=== PATIENT | female | born 1960 | race Caucasian/White ===

== ENCOUNTER 2024-10-02 13:01 | Emergency (ER) | payer OTHER ==
[~2024-10-02] VITALS: Ht 167.6 cm; Wt 60.3 kg
[~2024-10-02 13:01] MED LIST: ALPR0.255 PO; TERB250T53 PO
[2024-10-02] MEDS ORDERED: HYDR-3972 PO (13:44)
[2024-10-02] MEDS ORDERED: IBUP-1957 PO (13:44)
[2024-10-02 13:55] VITALS: BP 130/76; O2SAT 98
[2024-10-02] MEDS ORDERED: TRAM50TA2 PO ×2 (18:12→18:16)
== END 2024-10-02 13:56 | disposition home or self-care (01) ==
LOC: ER 13:01
DX: K43.9 Ventral hernia without obstruction or gangrene (principal); F17.200 Nicotine dependence, unspecified, uncomplicated; F41.9 Anxiety disorder, unspecified; K59.09 Other constipation; Z87.440 Personal history of urinary (tract) infections
CPT/HCPCS: A4606; A4663

== ENCOUNTER → 2024-10-14 | Emergency (ER) | payer OTHER ==
[~2024-10-14] VITALS: Ht 167.6 cm; Wt 59.0 kg
[~2024-10-14] MED LIST changes: +CEFTRIAXONE 1 G VIAL ONE; +CEPH500C2 PO; +FLUCONAZOLE 100 MG TABLET ONE; +HYDR-3972 PO; +HYDR-4209 PO; +IBUP-1955 PO; +IBUP-1957 PO; +MORPHINE SULFATE 4 MG/1 ML DISP.SYRIN ONE; +ONDA4TAB5 PO; +ONDANSETRON 4 MG/2 ML VIAL ONE; +POLY17PO4 PO; +TAMS-3 PO; +TRAM50TA2 PO
[2024-10-14 14:04] LABS: BASOPHILS % (AUTO) 0.2 % (0.0-2.0); EOSINOPHILS % (AUTO) 0.1 % (0.0-7.0); HEMATOCRIT 41.8 % (31.2-41.9); HEMOGLOBIN 13.8 g/dL (10.9-14.3); LYMPHOCYTES # (AUTO) 0.1 K/uL (0.8-4.8); LYMPHOCYTES % (AUTO) 1.1 % (20.5-51.5); MEAN CORPUSCULAR HEMOGLOBIN 29.8 uug (24.7-32.8); MEAN CORPUSCULAR HGB CONC 33 g/dL (32.3-35.6); MEAN CORPUSCULAR VOLUME 90.4 fL (75.5-95.3); MONOCYTES # (AUTO) 0.2 K/uL (0.1-1.30); MONOCYTES % (AUTO) 1.7 % (0.0-11.0); NEUTROPHILS # (AUTO) 13.6 K/uL (1.8-8.9); NEUTROPHILS % (AUTO) 96.9 % (38.5-71.5); PLATELET COUNT (AUTO) 244 K/uL (179-408); RED BLOOD CELL COUNT(AUTO) 4.63 MIL/uL (3.63-4.92)
[2024-10-14 14:17] LABS: *BILIRUBIN,URIN NEGATIVE (NEGATIVE); *BLOOD, URINE 3+ (NEGATIVE); *CLARITY,URINE CLEAR (CLEAR); *COLOR,URINE YELLOW (YELLOW); *KETONES,URINE TRACE (NEGATIVE); *PROTEIN,URINE 1+ (NEGATIVE); LEUKOCYTE ESTERASE ,URINE 1+ (NEGATIVE); NITRITE, URINE NEGATIVE (NEGATIVE); UGLUCOSE NEGATIVE (NEGATIVE)
[2024-10-14 14:17] LABS: DIFFERENTIAL COMMENT 1
[2024-10-14 14:19] LABS: CALCIUM 9.5 mg/dL (8.5-10.1); CREATININE 1.1 mg/dL (0.6-1.3); POTASSIUM 4.3 mmol/L (3.5-5.1)
[2024-10-14 14:25] LABS: ALBUMIN 3.4 g/dL (3.4-5.0); BILIRUBIN,DIRECT 0.1 mg/dL (0.0-0.2); BILIRUBIN,TOTAL 0.6 mg/dL (0.2-1.0); TOTAL PROTEIN, SERUM 6.9 g/dL (6.4-8.2)
[2024-10-14 14:29] LABS: BACTERIA,URINE MANY /HPF (NONE SEEN); RBC,URINE 20-50 /HPF (0-3); SQUAMOUS EPITHELIAL CELL,UR FEW /HPF (NONE SEEN); WBC,URINE 50-80 /HPF (0-3); YEAST,URINE BUDDING YEAST /HPF (NONE SEEN)
[2024-10-14] MEDS: IV NORMAL SALINE 1000 ML BAG IV ONE (15:08)
[2024-10-14] MEDS: MORPHINE SULFATE 4 MG/1 ML DISP.SYRIN IV ONE (15:09)
[2024-10-14] MEDS: ONDANSETRON 4 MG/2 ML VIAL IV ONE (15:09)
[2024-10-14] MEDS: CEFTRIAXONE 1 G in IV DEXTROSE 5% 50 ML IV ONE (15:09)
[2024-10-14] MEDS: FLUCONAZOLE 100 MG TABLET PO ONE (16:22)
[2024-10-14] MEDS: FENTANYL CITRATE 100 MCG/2 ML AMPUL IV ONE (16:51)
[2024-10-14] MEDS: KETOROLAC TROMETHAMINE 15 MG INJ IVP ONE (16:51)
[2024-10-14 17:10] VITALS: O2SAT 98
== END | disposition home or self-care (01) ==
LOC: ER 13:36
DX: S76.011A Strain of muscle, fascia and tendon of right hip, initial encounter (principal); N13.2 Hydronephrosis with renal and ureteral calculous obstruction; N39.0 Urinary tract infection, site not specified; G43.909 Migraine, unspecified, not intractable, without status migrainosus; F17.200 Nicotine dependence, unspecified, uncomplicated; F41.9 Anxiety disorder, unspecified; W01.0XXA Fall on same level from slipping, tripping and stumbling without subsequent striking against object, initial encounter; Y93.K1 Activity, walking an animal; Y92.89 Other specified places as the place of occurrence of the external cause; Y99.8 Other external cause status
CPT/HCPCS: 99285; 74176; 96365; 96375; 80076; 80048; 81001; 83690; 85025; 87086; 36415; J1885; J0696; J2405; J3010; J2270; J7040; A4606; A4663